=== PATIENT | female | born 1955 | race Caucasian/White ===

== ENCOUNTER 2020-12-26 07:12 | Outpatient (CLI) | payer OTHER ==
[2020-12-26] MEDS ORDERED: ALTACE1.25 MG PO (14:39)
[2020-12-26] MEDS ORDERED: SYNTHROID50 MCG PO (14:39)
== END 2020-12-26 07:34 | disposition home or self-care (01) ==
LOC: LAB 07:12
PROVIDERS: ATTEND Orthopaedic Surgery
DX: S52.532A Colles' fracture of left radius, initial encounter for closed fracture (principal); M81.8 Other osteoporosis without current pathological fracture; E78.2 Mixed hyperlipidemia; N39.0 Urinary tract infection, site not specified; E11.9 Type 2 diabetes mellitus without complications; E03.8 Other specified hypothyroidism; D64.89 Other specified anemias; M85.88 Other specified disorders of bone density and structure, other site; E88.89 Other specified metabolic disorders; E83.42 Hypomagnesemia; E56.1 Deficiency of vitamin K

== ENCOUNTER 2020-12-30 06:20 | Day surgery (SDC) | payer OTHER ==
[~2020-12-30 06:20] MED LIST: ALTACE1.25 MG PO; SYNTHROID50 MCG PO
== END 2020-12-30 15:50 | disposition home or self-care (01) ==
LOC: CIR.AMB 06:20
PROVIDERS: ATTEND Orthopaedic Surgery
DX: S52.532P Colles' fracture of left radius, subsequent encounter for closed fracture with malunion (principal); Z20.822 Contact with and (suspected) exposure to COVID-19; M24.532 Contracture, left wrist
CPT/HCPCS: 25609; 20680; 20902; 25151; C1776

== ENCOUNTER 2021-04-09 07:22 | Outpatient (CLI) | payer OTHER | END 2021-04-09 07:26 | disposition home or self-care (01) | LOC: LAB 07:22 | PROVIDERS: ATTEND Orthopaedic Surgery | DX: M54.5 Low back pain (principal); S52.532D Colles' fracture of left radius, subsequent encounter for closed fracture with routine healing; E21.2 Other hyperparathyroidism; E88.89 Other specified metabolic disorders; M81.8 Other osteoporosis without current pathological fracture; E56.1 Deficiency of vitamin K ==